=== PATIENT | male | born 1930 | race Caucasian/White ===

== ENCOUNTER 2017-07-02 12:57 | Emergency (ER) | payer MEDICARE ==
[~2017-07-02] VITALS: Ht 182.8 cm; Wt 83.9 kg
[~2017-07-02 12:57] MED LIST: AMLODIPINE5 MG PO; ASPIRIN81 M1 PO; ATOXIMETIN-B1 CAP PO; CALCITRIOL0.25 MCG PO; CATAPRES-TTS 10.1 MG PO; HALCION0.25 MG PO; HYDROCODONE BIT1 T11 PO; LEVOTHYROXINE0.05 MG PO; LIPITOR40 MG PO; LISINOPRIL AND1 TA2 PO; LISINOPRIL/HCTZ1 TA2 PO; LOPURIN100 MG PO; MEDROL DOSEPAK4 MG PO; NAPROSYN375 MG PO; SODIUM BICARBO325 MG PO; TAMSULOSIN HYD0.4 MG PO; TOPROL XL25 MG PO; TRAMADOL HCL50 MG PO; ULTRAM50 MG PO; VITAMIN D31000 IU PO; VOLTAREN50 M1 PO
== END 2017-07-02 14:37 | disposition home or self-care (01) ==
LOC: ED 12:57
DX: S16.1XXA Strain of muscle, fascia and tendon at neck level, initial encounter (principal); Z79.82 Long term (current) use of aspirin; Z79.899 Other long term (current) drug therapy; W01.0XXA Fall on same level from slipping, tripping and stumbling without subsequent striking against object, initial encounter; Y93.89 Activity, other specified; Y92.89 Other specified places as the place of occurrence of the external cause; Y99.8 Other external cause status

== ENCOUNTER 2017-07-23 05:16 | Inpatient (IN) | payer MEDICARE ==
[2017-07-23] VITALS (9 sets, daily range): BP systolic 154–238; BP diastolic 47–117
[~2017-07-23] VITALS: Ht 182.9 cm; Wt 85.9 kg
--- NOTE | ~2017-07-23 | CON ---
[place], [place] REPORT OF CONSULTATION [id number] UNIT #: [id number] ROOM: 409 DOCTOR: NATALIA CRAWFORD MD BIRTHDATE: [birth year] DOS: 07/23/2017 REASON FOR CONSULTATION: Acute on chronic kidney disease/patient known to you. HISTORY OF PRESENT ILLNESS: This is an 87-year-old male. He has a past medical history of known chronic kidney disease. He has a history of hypertension for over 10 years, history of prostate cancer with seed implantation years ago as well as DJD, hypothyroidism and hyperlipidemia. The patient has had somewhat of chronic issues with hyperkalemia, metabolic acidosis and is on sodium bicarbonate tablets. He also has apparently secondary hyperparathyroidism. The patient has a history of chronic kidney disease that has been ongoing for a number of years. He has been seen of number of dictaphone typist in the past, most recently saw my partner, Dr. Peterson, in the office, actually earlier this month. He appears to have stage 4 CKD with creatinine levels at baseline in the low 3s range. In his last visit, discussions were made in regards to access referral for his approaching dialysis and he was also referred to the CKD program. The patient has a history of anemia as well. It seems he was brought to the hospital following a fall down the steps. He denies any chest pain or shortness of breath. He was admitted for further evaluation. The patient's labs showed a BUN of 42 and a creatinine of 4.2. Blood pressure also was elevated. When I seen him, he stated he felt okay. He denied current shortness of breath. He just feels sore. IV fluids have been ordered by the primary service. He denied nausea or vomiting, presently fevers or chills. ALLERGIES: No known drug allergies. MEDICATIONS: Include amlodipine, aspirin, Lipitor, Rocaltrol, clonidine, levothyroxine, metoprolol, oxycodone, sodium bicarbonate, Flomax, trazodone. PAST MEDICAL HISTORY: As noted above. 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 FAMILY HISTORY: Negative for chronic kidney disease. Otherwise, noncontributory. SOCIAL HISTORY: No tobacco, alcohol or illicit drugs. There was remote history of tobacco abuse in the past. REVIEW OF SYSTEMS: As per HPI, otherwise a 10-point review of systems was reviewed and was negative. PHYSICAL EXAMINATION: VITAL SIGNS: Temperature was 97.5, pulse 65, respiratory rate 18, blood pressure 212/56. GENERAL: He is awake and alert, comfortable, in no acute distress. HEENT: Shows no JVD. Sclerae are anicteric. Mucous membranes are moist. Pharynx is clear. NECK: Supple. Trachea is midline. There is no neck lymphadenopathy. There is no thyromegaly. [place], [place] REPORT OF CONSULTATION NAME: GARY JIMENEZ UNIT #: [id number] ROOM: 409 DOCTOR: NATALIA CRAWFORD MD BIRTHDATE: [birth year] LUNGS: Diminished breath sounds, appreciable wheezes. No tactile fremitus. Not using accessory muscles of respiration. HEART: Normal S1, S2. No rub, thrill or gallop. ABDOMEN: Soft, nontender. There is no organomegaly or rigidity. There is no rebound or guarding. There is no CVA tenderness. EXTREMITIES: Had trace edema. There is no lower extremity lymphadenopathy. Distal pulses are 2+. SKIN: Showed no overt rash. There is no petechiae or purpura. Skin temperature warm. NEUROLOGIC: He was awake, alert. He was following commands. Cranial nerves intact. LABORATORY DATA: BUN 42, creatinine 4.2, sodium 140, potassium 5.0, CO2 of 23, calcium 8.7, magnesium 2.0, albumin 3.4. Hemoglobin 9.0, white count 10.9, platelets of 143. CT of the head showed no acute findings. IMPRESSION: 1. Acute on chronic kidney disease. The patient's baseline creatinine appears to be in the low 3s range. He may have a slight acute element likely related to prerenal factors. 2. Status post fall with details unclear. 3. Anemia of chronic disease. 4. Secondary hyperparathyroidism. 5. Chronic metabolic acidosis. 6. Hypothyroidism. 7. Hypertension with accelerating hypertension. PLAN: 1. Fluids have been ordered at 125 mL per hour. I discussed with the nurse and recommended to decrease to 50 mL per hour. If his creatinine is a little bit better tomorrow, I would recommend discontinuing fluids, especially if he is taking adequate oral intake. His blood pressure appears to be, uncontrolled. Would try to treat medications. Amlodipine can be increased to 10 mg daily. Clonidine can also be increased to be used on p.r.n. basis every 6-8 hours. Home meds should continue. Dose meds for current creatinine clearance. Would stop Lovenox in the setting of advanced kidney disease and use subcutaneous heparin. There is no need for renal replacement therapy presently. Thank you for this consultation. We will follow with you. [place], [place] REPORT OF CONSULTATION NAME: GARY JIMENEZ UNIT #: [id number] ROOM: [facility] DOCTOR: NATALIA CRAWFORD MD BIRTHDATE: [birth year] NATALIA CRAWFORD MD CM:CONSTR:REPORT OF CONSULTATION 1422 07/23/17 2235 interface
--- NOTE | ~2017-07-23 | PR ---
[place], [place] PROGRESS NOTE NAME: GARY JIMENEZ [facility] #: [id number] UNIT #: [id number] ROOM: 409 DOCTOR: NATALIA CRAWFORD MD BIRTHDATE: [birth year] DOS: 07/24/2017 SUBJECTIVE: The patient appears to be comfortable. No events were noted. He is awake and alert. When I did go in to see him, he was on the commode. He did not appear to be in any acute distress. PHYSICAL EXAMINATION: VITAL SIGNS: Showed temperature 97.8, pulse 63, respiratory rate 20, blood pressure 173/56. HEENT: Shows no JVD. EXTREMITIES: Had trace edema. SKIN: Showed no rash. NEUROLOGIC: No focal findings. Otherwise, the exam was limited. LABORATORY DATA: Hemoglobin 8.0, white count 7.4, platelets of 123. Urine culture showed no growth. BUN 40, creatinine 3.7, sodium 138, potassium of 5.2, CO2 of 22, calcium 8.2, phosphorus 3.4, magnesium 1.8. ASSESSMENT AND PLAN: 1. Acute on chronic kidney disease. The patient's baseline appears to be in the low 3s range. Renal function has improved with some volume. His creatinine is nearing baseline. 2. Status post fall with details unclear. Workup ongoing. 3. Anemia of chronic disease. The patient will require erythropoietin stimulating agents. Consideration should be made to give one dose while in the hospital. 4. Hypertension. Blood pressure has been labile. Recent changes have been made with increase in his amlodipine to 5 mg twice a day as well as p.r.n. clonidine. 5. Hypothyroidism. The patient is on levothyroxine. NATALIA CRAWFORD MD CM:PNTRANS [id number] NATALIA CRAWFORD MD [id number] interface
[~2017-07-23 05:16] MED LIST changes: -LEVOTHYROXINE0.05 MG PO; +LEVOTHYROXINE75 MCG PO
[2017-07-23 06:10] LABS: BILIRUBIN NEGATIVE (NEGATIVE); BLOOD 2+ (NEGATIVE); CLARITY CLEAR (CLEAR); COLOR YELLOW (YELLOW); GLUCOSE NEGATIVE (NEGATIVE); KETONE NEGATIVE (NEGATIVE); LEUKO ESTERASE NEGATIVE (NEGATIVE); NITRITE NEGATIVE (NEGATIVE); PH 6.5 (5.0-9.0); UROBILINOGEN 0.2 E.U./dl (0.2-1.0)
[2017-07-23 06:14] LABS: BASO # 0.1 10*3/uL (0.0-0.1); BASO % 0.5 % (0.0-1.0); EOS # 0.2 10*3/uL (0.0-0.4); EOS % 1.7 % (1.0-4.0); HEMATOCRIT 27.9 % (42.0-52.0); LYMPH # 1.7 10*3/uL (1.3-4.4); LYMPH % 15.3 % (27.0-41.0); MEAN CELL VOLUME 97.9 fl (80.0-94.0); MEAN CORPUSCULAR HGB 31.6 pg (27.0-31.0); MEAN CORPUSCULAR HGB CONC 32.3 g/dl (33.0-37.0); MEAN PLATELET VOLUME 11.4 fl (9.6-12.3); MONO # 0.9 10*3/uL (0.1-1.0); NEUT % 73.8 % (47.0-73.0); PLATELET COUNT AUTOMATED 143 10*3/uL (130-400); RED BLOOD COUNT 2.85 10*6/uL (4.50-5.90); RED CELL DISTRI WIDTH 13.5 % (0-14.5); WHITE BLOOD COUNT 10.9 10*3/uL (4.8-10.8)
[2017-07-23 06:25] LABS: ACT PARTIAL THROMBO TIME 25.9 SECONDS (20.8-31.5)
[2017-07-23 06:30] LABS: ALBUMIN 3.4 gm/dl (3.1-4.5); CREATININE 4.2 mg/dL (0.70-1.30); TOTAL PROTEIN 6.6 gm/dL (6.4-8.2)
--- NOTE | 2017-07-23 06:55 | NUR ---
PT AMBULATED FROM BED TO DOOR OF ROOM AND BACK WITH WALKER. NO DIFFICULTY AMBULATING BUT DIFFICULTY GETTING UP OUT OF BED.
--- NOTE | 2017-07-23 07:02 | NUR ---
DRESSING APPLIED TO SKIN TEARS ON RIGHT ARM AND SHOULDER. BLEEDING CONTROLLED AT THIS TIME.
--- NOTE | 2017-07-23 07:16 | NUR ---
REPORT FROM RICKY TAVERAS.
--- NOTE | 2017-07-23 07:41 | NUR ---
REPORT ATTEMPTED TO LEVEL 4, STATES THEY ARE STILL ASSIGNING PATIENT AND WILL CALL BACK SHORTLY.
--- NOTE | 2017-07-23 07:44 | NUR ---
REPORT CALLED FROM ER NURSE IZABEL, THIS RN ASKED ABOUT PT'S DOCUMENTED BP OF 217/74, SHE STATED PT HAS HISTORY OF HTN AND PT IS ALSO HAVING SOME PAIN. I STATED I WAS NOT COMFORTABLE RECEIVING PT AT THIS TIME. SHE STATED SHE WOULD NOTIFY THE DOCTOR. SHIFT DIRECTOR DEVIN UPDATED ON SITUATION.
--- NOTE | 2017-07-23 08:03 | NUR ---
REPORT CALLED TO FRANCO WALL RN UPSTAIRS AT 0750. NURSE REFUSING TO TAKE PATIENT WITH A DOCUMENTED BP OF 217/74. DR. SMITH MADE AWARE AND ORDERED 40MG IV HYDRALIZE. PATIENT WILL BE MONITORED IN ER AT THIS TIME.
--- NOTE | 2017-07-23 08:35 | NUR ---
BLOOD PRESSURE NOW 160/51 HR 74. FRANCO WALL RN MADE AWARE AND PATENT NOW BEINGTRASNFERRED TO INPATIENT CARE BY IZABEL VALLES RN.
--- NOTE | 2017-07-23 09:00 | NUR ---
A 87, admitted to , under the services of ONOFRE Uriarte DO with a diagnosis of INTRACTABLE PAIN, FREQUENT FALLS. Chief complaint is FELL DOWN BASEMENT STEPS. Patient arrived via ambulance from ER. Monitor applied. Initial assessment completed. Vital signs taken and recorded. ONOFRE URIARTE DO notified of admission to the unit. Orders received. See assessment for past medical history, medications and allergies. Patient and/or family oriented to unit. [facility] visitation policy reviewed. Clothing/patient valuable form completed. FRANCO WALL
--- NOTE | 2017-07-23 09:30 | NUR ---
DR CUTLER UPDATED ON PT'S STATUS, BP 206/66 AND OF PT'S MULTIPLE SKIN TEARS TO RIGHT ARM/SHOULDER.
[2017-07-23] MEDS ORDERED: TRAZODONE100 MG PO (09:37)
[2017-07-23] MEDS ORDERED: METOPROLOL SUCC50 M1 PO (09:37)
[2017-07-23] MEDS ORDERED: 'CLONIDINE0.1 MG PO (09:38)
--- NOTE | 2017-07-23 09:38 | NUR ---
PT'S MED REC UPDATED PER BOTTLES PROVIDED BY PT'S DAUGHTER, PT'S DAUGHTER WAS GOING TO HIS HOME TO CHECK FOR THE BOTTLE OF OXYCONTIN THAT THEY HAD FORGOTTEN AND WILL UPDATED WHEN THEY BRING IN.
[2017-07-23] MEDS ORDERED: OXAYDO7.5 MG PO (10:00)
--- NOTE | 2017-07-23 11:03 | NUR ---
SPOKE WITH MAUDE AT DR HUTCHINS OFFICE REGARDING CONSULT.
--- NOTE | 2017-07-23 12:19 | NUR ---
NOTIFIED DR CUTLER OF CRITICAL TROPONIN OF 0.047. NO NEW ORDERS.
--- NOTE | 2017-07-23 13:48 | NUR ---
SPOKE WITH DR CRAWFORD REGARDING PT'S AND ORDERS FOR IV FLUIDS, STATES TO DECREASE FLUIDS TO NS @ 50 ML/HR.
--- NOTE | 2017-07-23 14:24 | NUR ---
WOUND CARE COMPLETED AT THIS TIME PER ORDER. PT TOLERATED WELL.
--- NOTE | 2017-07-23 15:29 | NUR ---
DR CUTLER UPDATED ON PT'S BP OF , STATED TO CALL DR CRAWFORD FOR ORDERS.
--- NOTE | 2017-07-23 15:34 | NUR ---
CALL PLACED TO DR CRAWFORD'S ANSWERING SERVICE REGARDING BP OF 206/66. STATED THEY WILL PAGE THE DOCTOR.
--- NOTE | 2017-07-23 15:38 | NUR ---
SPOKE WITH DR CRAWFORD REGARDING PT'S BP OF 206/66, STATED TO INCREASE NORVASC TO 5MG BID, GIVE DOSE NOW AND TO PUT IN PRN ORDER FOR CLONIDINE 0.1MG EVERY 6 HOURS FOR SBP>180.
--- NOTE | 2017-07-23 16:21 | NUR ---
PT'S BP 206/66, GIVEN PRN CLONIDINE, WILL REASSESS FOR EFFECTIVENESS.
--- NOTE | 2017-07-23 17:00 | NUR ---
RECHECKED PT'S BP AT THIS TIME, BP: 184/82.
--- NOTE | 2017-07-23 21:30 | NUR ---
DR CARVAAJL CALLED TO REPORT BP OF 210/70 AND HR OF 51 WHICH HAD DROPPED TO 47. ORDERED AMLODIPINE TO BE HELD. ORDERED CLONIDINE AND OXYCODONE APPROVED TO GIVE.
--- NOTE | 2017-07-23 22:45 | NUR ---
BLOOD SUGAR RECHECKED AT 195/70. PRN CLONIDINE GIVEN.
[2017-07-24] VITALS: BP 192/46
[2017-07-24 04:00] VITALS: BP 180/75
[2017-07-24 06:07] LABS: BASO % 0.4 % (0.0-1.0); EOS # 0.2 10*3/uL (0.0-0.4); EOS % 2.7 % (1.0-4.0); HEMATOCRIT 25.2 % (42.0-52.0); LYMPH # 1.5 10*3/uL (1.3-4.4); LYMPH % 20.2 % (27.0-41.0); MEAN CELL VOLUME 98.1 fl (80.0-94.0); MEAN CORPUSCULAR HGB 31.1 pg (27.0-31.0); MEAN CORPUSCULAR HGB CONC 31.7 g/dl (33.0-37.0); MEAN PLATELET VOLUME 11.7 fl (9.6-12.3); MONO # 0.8 10*3/uL (0.1-1.0); MONO % 10.8 % (3.0-9.0); NEUT # 4.8 10*3/uL (2.3-7.9); NEUT % 65.5 % (47.0-73.0); PLATELET COUNT AUTOMATED 123 10*3/uL (130-400); RED BLOOD COUNT 2.57 10*6/uL (4.50-5.90); RED CELL DISTRI WIDTH 13.8 % (0-14.5); WHITE BLOOD COUNT 7.4 10*3/uL (4.8-10.8)
[2017-07-24 06:37] LABS: ALBUMIN 2.8 gm/dl (3.1-4.5); CREATININE 3.71 mg/dL (0.70-1.30); MAGNESIUM 1.9 mg/dL (1.5-2.1); POTASSIUM 5.2 mmol/L (3.5-5.1)
[2017-07-24 06:43] LABS: FREE T4 1.03 ng/dl (0.76-1.46); PHOSPHOROUS 3.4 mg/dL (2.5-4.9); THYROID STIM HORMONE (HS) 2.88 uIU/ml (0.358-4.75); TOTAL PROTEIN 5.7 gm/dL (6.4-8.2)
[2017-07-24 06:45] LABS: VITAMIN D, 25-HYDROXY 29.7 ng/mL (30-100)
[2017-07-24 06:47] LABS: ACT PARTIAL THROMBO TIME 29.4 SECONDS (20.8-31.5); INTERNATIONAL NORM RATIO 1.1 (2.0-3.5)
[2017-07-24 08:00] VITALS: BP 126/82; BP 202/74
--- NOTE | 2017-07-24 08:00 | NUR ---
PT. AWAKE, ALERT X 2, RE-ORIENTED TO PLACE PRN. LUNG SOUNDS DIMINISHED, HR IRREGULAR ON AUSCULTATION. PT. ATTEMPTED GETTING UP, BED ALARM WENT OFF, PT. UNSTEADY WHEN UP. ASSISTED BACK IN BED, BED ALARM BACK ON, CALL LIGHT WITHIN REACH, BED IN LOWEST POSITION, WHEELS LOCKED. SEE SHIFT ASSESSMENT.
--- NOTE | 2017-07-24 08:22 | NUR ---
SPOKE WITH DR CUTLER REGARDING FACT THAT PT HAS HAD POSITIVE TROPONINS & NO FURTHER WORKUP HAS BEEN DONE. ALSO NOTED THAT PT IS FULL CODE. PER DR CUTLER, NO NEED FOR FURTHER WORKUP BECAUSE THESE LAB RESULTS ARE ESSENTIALLY NOT A TRUE POSITIVE.
[2017-07-24 12:00] VITALS: BP 132/62
--- NOTE | 2017-07-24 13:56 | NUR ---
PT. UP TO CHAIR AT THIS TIME. BODY ALARM ON, NON-SKID FOOTWEAR ON, CALL LIGHT WITHIN REACH, CHAIR WHEELS LOCKED.
[2017-07-24 16:00] VITALS: BP 173/56
[2017-07-24 20:00] VITALS: BP 193/56
--- NOTE | 2017-07-24 21:58 | NUR ---
PRN RESTORIL GIVEN TO HELP PT REST. PT APPEARS VERY ANXIOUS AND IS TRYING TO CLIMB OUT OF BED UNASSISTED.
--- NOTE | 2017-07-24 22:58 | NUR ---
PRN RESTORIL EFFECTIVE, PT RESTING COMFORTABLY.
[2017-07-25] VITALS: BP 151/47
[2017-07-25 06:17] LABS: BASO % 0.6 % (0.0-1.0); EOS # 0.4 10*3/uL (0.0-0.4); EOS % 5.9 % (1.0-4.0); HEMATOCRIT 26.8 % (42.0-52.0); HEMOGLOBIN 8.7 g/dl (14.0-18.0); LYMPH # 1.8 10*3/uL (1.3-4.4); LYMPH % 27.4 % (27.0-41.0); MEAN CELL VOLUME 97.1 fl (80.0-94.0); MEAN CORPUSCULAR HGB 31.5 pg (27.0-31.0); MEAN CORPUSCULAR HGB CONC 32.5 g/dl (33.0-37.0); MEAN PLATELET VOLUME 11.5 fl (9.6-12.3); MONO # 0.6 10*3/uL (0.1-1.0); MONO % 9.2 % (3.0-9.0); NEUT # 3.6 10*3/uL (2.3-7.9); NEUT % 56.6 % (47.0-73.0); PLATELET COUNT AUTOMATED 131 10*3/uL (130-400); RED BLOOD COUNT 2.76 10*6/uL (4.50-5.90); RED CELL DISTRI WIDTH 13.8 % (0-14.5); WHITE BLOOD COUNT 6.4 10*3/uL (4.8-10.8)
[2017-07-25 06:34] LABS: CREATININE 3.88 mg/dL (0.70-1.30)
--- NOTE | 2017-07-25 06:58 | NUR ---
MANUAL BLOOD PRESSURE 150/60.
[2017-07-25 08:00] VITALS: BP 211/57
--- NOTE | 2017-07-25 10:39 | NUR ---
PHYSICAL THERAPY PAtient evaluated on 4, full evaluation to follow. Comntiue with PT as per plan of care with fall, max (A) x 2, alarms, decreased safety, confusion and severe right shoulder pain. Recommend ortho consult for severe right shoulder pain. Patient is high complexity via chart review, tests and evaluation: [id number]. Thank you for this referral. Nuris Springer,PT
[2017-07-25 11:00] VITALS: BP 181/62
--- NOTE | 2017-07-25 11:12 | NUR ---
Occupational Therapy evaluation completed this date on 4 with full eval to follow. Precautions include fall risk, RUE pain/contusions, negative fx to humerus, impaired ADLS, impaired cognition and [place]. Recommend OT per POC and SNF to enable safe return home at [facility]. Thank you for this referral. Heather Oleary OTR/L
[2017-07-25 12:00] VITALS: BP 161/60
--- NOTE | 2017-07-25 12:20 | NUR ---
DR. BULLOCK IS OUT OF TOWN UNTIL TOMORROW, CONTACTED DR DUNN AND MADE HIM AWARE.
--- NOTE | 2017-07-25 14:31 | NUR ---
UPON ASSESSMENT AT 1000, PT'S BP WAS 211/57, HEART RATE 71. ADMINISTERED CATAPRES AND NORVASC, RECHECKED BP AT 1100. BP READING WAS 181/62, HEART RATE OF 61 . ADMINISTERED METOPROLOL IN RESPONSE. REASSESSED. SEE ASSESSEMENT.
[2017-07-25 16:00] VITALS: BP 167/67
[2017-07-25 20:00] VITALS: BP 139/67; BP 159/59
[2017-07-26] VITALS: BP 161/88
[2017-07-26 06:44] LABS: CREATININE 3.97 mg/dL (0.70-1.30); POTASSIUM 5.2 mmol/L (3.5-5.1)
[2017-07-26 08:00] VITALS: BP 198/94
--- NOTE | 2017-07-26 08:25 | NUR ---
life care planner in to see patient to discuss short term rehab at a skilled facility. Patient hesitant, but agreed to [facility]. Contacted [facility] and faxed referral.
--- NOTE | 2017-07-26 08:30 | NUR ---
PHYSICAL THERAPY John seen this AM 1:1 for his therapy treatment. Pt is confused, having drcreased safety awareness and C/O right shoulder pain. John was trying to get out of bed when i came into the room and tried to talk him out of it. Followed by transfer sitting on the side of his bed MOD A X 1 and help using Pt's left UE. Sitting balance side of bed X 8 min with MIN A X 1. Followed by sit/stand and pivot into Pt's bedside chair with MAX A X 1, with much verbal cueing to stand, balance safety and to pivot and sit. Pt up in bedside chair body alarm on and his nurse in at this time, treatment time 16 min. TAM CARMONA CHORUS MASTER.
[2017-07-26 10:08] VITALS: BP 152/74
--- NOTE | 2017-07-26 10:43 | NUR ---
IN TO SEE PATIENT.
--- NOTE | 2017-07-26 10:47 | NUR ---
'S OFFICE CALLED AT THIS TIME REGARDING CONSULT.
--- NOTE | 2017-07-26 11:20 | NUR ---
DRESSINGS CHANGED AT THIS TIME PER ORDER. PT TOLERATED WELL.
--- NOTE | 2017-07-26 12:00 | NUR ---
This nurse went to evaluate patient's wound but dressing were just changed prior to me assessing the patient. I told the patient that I will evaulate the areas tomorrow.
--- NOTE | 2017-07-26 12:42 | NUR ---
completed PASS/RR online in [employer] system. Waiting on acceptance from [facility]
--- NOTE | 2017-07-26 12:50 | NUR ---
Patient has been accepted to [facility] and the Medicare requirement 3 night stay has also been completed. Patient can go when medicallly stable for discharge.
--- NOTE | 2017-07-26 14:46 | NUR ---
IN TO SEE PATIENT REGARDING CONSULT.
[2017-07-26 16:00] VITALS: BP 156/70
--- NOTE | 2017-07-26 18:42 | NUR ---
PT REQUESTED AND RECEIVED IV MORPHINE SLOWLY PER PRN ORDER FOR C/O RIGHT SHOULDER PAIN AND HEADACHE. WILL MONITOR EFFECTIVENESS. PT UNABLE TO RATE PAIN ON A SCALE. WILL CONTINUE TO MONITOR. CALL LIGHT WITHIN REACH.
--- NOTE | 2017-07-26 19:30 | NUR ---
ASSUMED CARE 0F PT AT THIS TIME, CALL LIGHT WITH IN REACH
[2017-07-26 20:00] VITALS: BP 173/54
[2017-07-27] VITALS: BP 173/113
--- NOTE | 2017-07-27 02:37 | NUR ---
RESTING IN BED WITH EYES CLOSED RESPS EASY AND NONLABORED WITH NO S/S OF DISTRESS CALL LIGHT WITH IN REACH
[2017-07-27 06:21] LABS: CREATININE 4.37 mg/dL (0.70-1.30); POTASSIUM 5.5 mmol/L (3.5-5.1)
--- NOTE | 2017-07-27 06:55 | NUR ---
PT HAD INCREASED BP CALL PLACED TO MD AND NEW ORDERED FOR HYDRALAZINE 10MG IV NOW
[2017-07-27 08:00] VITALS: BP 174/66; BP 196/104
--- NOTE | 2017-07-27 08:30 | NUR ---
PATIENT IS SITTING IN CHAIR IN SEVERE DISCOMFORT IN RIGHT SHOULDER AND NECK. PATIENT MEDICATED AND EFFECTIVENESS WILL BE EVALUATED. SEE OTHER NURSE NOTE ON MEDICATION ADMINISTRATION. CALL LIGHT IS WITHIN REACH, SEE SHIFT ASSESSMENT.
--- NOTE | 2017-07-27 08:30 | NUR ---
CONTACTED DR. OWEN IN REGARDS TO UNCONTROLLED HTN OF 196/104. WAS INSTRUCTED TO GIVE 1000 MEDICATIONS METOPROLOL AND NORVASC NOW TO HELP LOWER BLOOD PRESSURE. BLOOD PRESSURE WAS RECHECKED AND IMPROVED FROM INITIAL RESULTS.
--- NOTE | 2017-07-27 08:33 | NUR ---
PT C/O RIGHT SHOULDER NECK PAIN, RATES PAIN 10 ON PAIN SCALE 0-10. MEDICATED WITH MORPHINE IV PER PRN ORDER, SEE EMAR. PT SITTING UP IN RECLINER CHAIR WITH BODY ALARM ON. CALL LIGHT IN REACH. WILL CON'T TO MONITOR.
--- NOTE | 2017-07-27 09:02 | NUR ---
PHYSICAL THERAPY John seen this AM 1:1 for his therapy session and a little better then yesterday, Pt not trying to get out of bed this morning. Transfer supine/sit with MOD A X 1, with cueing. Sitting balance from MIN A X 1, to supervision X 1, with cueing for sitting balance X 17 min. Followed by sit/stand, standing balance from MAX A X 1, to MOD A X 1, verbal cueing to stand tall. John not understanding that it was time to sit and i needed help from stand to sitting up in his bedside chair, body alarm on. TAM CARMONA PHYSIOLOGICAL CHEMIST.
--- NOTE | 2017-07-27 09:57 | NUR ---
PATIENT SEATED IN RECLINER UPON ARRIVAL. PATIENT IDENTIFIED BY NAME AND DATE OF . PATIENT COMPLETED ACTIVITY TO TOLERANCE THIS DATE. COMPLETED GROOMING SEATED FOR FACILITATION AROM WASH FACE SBA, COMB JIMENEZ MAXA, AND DENTURE CARE SHELDON. PATIENT COMPLETED BUE AROM HAND FLEX/EXT X 10 REPS AND SHOULDER AAROM FLEXION/EXT 2 SETS X 10 REPS WITH LIMITATION RUE TO TOLERANCE.COMPLETED LUE ELBOW FLEX/EXT 2SETS X 10 REPS. PATIENT REQUIRED VERBAL CUES MAINTAIN ATTENTION TO TASK. PATIENT LETHARGIC AND C/O FATIGUE REQUIRING FREQ REST BREAKS. KANDI MARYANNE RANCHO/Yury
[2017-07-27 10:41] VITALS: BP 132/68
--- NOTE | 2017-07-27 10:42 | NUR ---
PT SITTING UP IN RECLINER CHAIR. BP 132/[address] PERSON IN TO SEE PT. ORDERED POST VOID WILL DO AFTER NEXT VOID. CALL LIGHT IN REACH.
--- NOTE | 2017-07-27 13:43 | NUR ---
SPOKE WITH FAMILY AND NOTIFIED MRI THAT PER THEM PT DOESN'T HAVE A MECHANICAL VALVE.
--- NOTE | 2017-07-27 14:41 | NUR ---
GARY JIMENEZ [id number] Please refer to the physician's history and physical for past medical history, comorbid conditions, and allergies. Diagnosis: INTRACTABLE PAIN,FREQUENT FALLS Pedro Score: 16,AT RISK WOUND DESCRIPTIONS: Location of the wound: right forearm Type of wound: skin tear Thickness: Partial Size: 3.9cm x 0.8cm x 0.1cm Tunneling: none Undermining: none Sinus Tract: none Presence of Exudate: serosanguineous Amount: Light Color: Red Odor: None Periwound Skin Appearance: Normal Wound edges: approximated Pain (associated with wound): none at time of assessment How does patient state this happened? pt stated he fell down the steps. Location of the wound: right side of upper arm Type of wound: skin tear Thickness: Partial Size: 0.5cm x 3.0cm x 0.1cm Tunneling: none Undermining: none Sinus Tract: none Presence of Exudate: serosanguineous Amount: Light Color: Red Odor: None Periwound Skin Appearance: Normal Wound edges: approximated Pain (associated with wound): none How does patient state this happened? pt stated he fell down the steps Location of the wound: bottom of right upper arm Type of wound: skin tear Thickness: Partial Size: 2.4cm x 3.4cm x 0.1cm Tunneling: none Undermining: none Sinus Tract: none Presence of Exudate: serosanguineous Amount: Light Color: Red Odor: None Periwound Skin Appearance: Normal Wound edges: approximated Pain (associated with wound): none at time of assessment How does patient state this happened? pt stated he fell down the steps Location of the wound: top of right upper arm Type of wound: skin tear Thickness: Partial Size: 3.0cm x 4.2cm x 0.1cm Tunneling: none Undermining: none Sinus Tract: none Presence of Exudate: Sanguineous Amount: Light Color: Red Odor: None Periwound Skin Appearance: Normal Wound edges: approximated Pain (associated with wound): none at time of assessment How does patient state this happened? pt stated he fell down the stairs Location of the wound: right shoulder Type of wound: skin tear Thickness: Partial Size: 0.2cm x 0.5cm x 0.1cm Tunneling: none Undermining: none Sinus Tract: none Presence of Exudate: serosanguineous Amount: Light Color: Red Odor: None Periwound Skin Appearance: Normal Wound edges: approximated Pain (associated with wound): none at time of assessment How does patient state this happened? pt stated he fell down the stairs Surface the patient is resting on: Isoflex SKIN PREVENTION RECOMMENDATION: 1. Pressure redistribution support surface as appropriate 2. Elevate heels 3. Remove boots/TEDS every shift and reapply 4. Head of bed 30 degrees as tolerated 5. Assess nutrition and hydration 6. Manage moisture 7. Avoid the use of containment devices while in bed 8. Use absorptive products on surfaces limit layers of linens on bed 9. Turn and reposition every 1-2 hours in bed and every 1 hour in chair as tolerated 10. Weight shifts every 15 minutes while up in chair 11. Offloading with pillows or device to keep heels elevated off bed 12. Monitor skin at least every shift 13. Inspect under medical devices twice a day WOUND TREATMENT RECOMMENDATIONS: Continue current orders.
[2017-07-27 16:00] VITALS: BP 128/68
--- NOTE | 2017-07-27 16:34 | NUR ---
PATIENT RETURNS TO THE FLOOR AFTER C-SPINE MRI. PATIENT RESTING IN BED. STUDENT IS WITH PATIENT. POST VOID RESIDUAL URINE IS 248ML AFTER BLADDER SCAN. FAMILY AT PATIENT BEDSIDE.
--- NOTE | 2017-07-27 18:59 | NUR ---
PATIENT RESTING COMFORTABLY IN BED, CALL LIGHT IN WITHIN REACH, BED ALARM IS ACTIVATED.
[2017-07-27 20:00] VITALS: BP 190/76
[2017-07-28] VITALS: BP 165/69
[2017-07-28 06:12] LABS: BASO % 0.4 % (0.0-1.0); EOS # 0.4 10*3/uL (0.0-0.4); EOS % 4.4 % (1.0-4.0); HEMATOCRIT 27.2 % (42.0-52.0); HEMOGLOBIN 8.8 g/dl (14.0-18.0); LYMPH # 3.7 10*3/uL (1.3-4.4); LYMPH % 44.2 % (27.0-41.0); MEAN CELL VOLUME 96.8 fl (80.0-94.0); MEAN CORPUSCULAR HGB 31.3 pg (27.0-31.0); MEAN CORPUSCULAR HGB CONC 32.4 g/dl (33.0-37.0); MEAN PLATELET VOLUME 11.4 fl (9.6-12.3); MONO # 0.9 10*3/uL (0.1-1.0); MONO % 10.8 % (3.0-9.0); NEUT # 3.3 10*3/uL (2.3-7.9); NEUT % 39.8 % (47.0-73.0); PLATELET COUNT AUTOMATED 172 10*3/uL (130-400); RED BLOOD COUNT 2.81 10*6/uL (4.50-5.90); RED CELL DISTRI WIDTH 13.8 % (0-14.5); WHITE BLOOD COUNT 8.4 10*3/uL (4.8-10.8)
[2017-07-28 06:44] LABS: CREATININE 4.51 mg/dL (0.70-1.30); POTASSIUM 5.1 mmol/L (3.5-5.1)
[2017-07-28 08:00] VITALS: BP 190/76
[2017-07-28 12:00] VITALS: BP 119/56
--- NOTE | 2017-07-28 13:59 | NUR ---
PHYSICAL THERAPY Patient presented to therapy with report of R Shoulder pain that is very painful. Patient could not verbalize a pain level. Patient performed transfer supine to sitting at EOB with 3 attempts. The first two attempts the patient experienced severe vertigo/ dizziness and had to lie back down. The 3rd supine to sitting transfer required Maximum Assistance x 1. Patient transfered sit to stand and transfer to bedside chair with Maximum Assistance x 1. Patient was 1:1 with this EDI DEVELOPER for 20 minutes of transfer training. Patient was unable to ambulate safely. Alireza Caban EDI DEVELOPER
[2017-07-28 16:00] VITALS: BP 164/60
[2017-07-28] MEDS ORDERED: B12100 MC1 PO (17:03)
[2017-07-28] MEDS ORDERED: OXAYDO7.5 MG PO (17:03)
[2017-07-28] MEDS ORDERED: AMLODIPINE BESYL5 MG PO (17:03)
[2017-07-28] MEDS ORDERED: Vitamin D PO (17:03)
[2017-07-28] MEDS ORDERED: 'CLONIDINE0.1 MG PO (17:03)
[2017-07-28] MEDS ORDERED: CYCLOBENZAPRINE10 MG PO (17:03)
[2017-07-28] MEDS ORDERED: TYLENOL325 M2 PO (17:03)
--- NOTE | 2017-07-28 19:24 | NUR ---
[facility] Discharge instructions reviewed with patient/family. Patient receptive and verbalizes understanding. Follow-up care arranged. Written instructions given to patient/family. NAVID BADILLO
--- NOTE | 2017-07-29 08:00 | NUR ---
PHYSICAL THERAPY CO-SIGN I approve of the Phyical Therapy notes written above. DUANE CAUSEY PT
== END 2017-07-28 19:20 | disposition other institution (70) | DRG 551 ==
LOC: ED 05:16 → EDHOLD 06:58 → 4E 06:58 → EDHOLD 07:19 → 4E 07:30
PROVIDERS: Family Medicine; Hospitalist; Internal Medicine; Student in an Organized Health Care Education/Training Program; ADMIT Internal Medicine
DX: M50.322 Other cervical disc degeneration at C5-C6 level (principal); N17.0 Acute kidney failure with tubular necrosis; N18.4 Chronic kidney disease, stage 4 (severe); E44.1 Mild protein-calorie malnutrition; I25.810 Atherosclerosis of coronary artery bypass graft(s) without angina pectoris; N25.81 Secondary hyperparathyroidism of renal origin; I16.1 Hypertensive emergency; S40.011A Contusion of right shoulder, initial encounter; I12.9 Hypertensive chronic kidney disease with stage 1 through stage 4 chronic kidney disease, or unspecified chronic kidney disease; M50.323 Other cervical disc degeneration at C6-C7 level; M75.41 Impingement syndrome of right shoulder; M48.02 Spinal stenosis, cervical region; E03.9 Hypothyroidism, unspecified; D72.829 Elevated white blood cell count, unspecified; D53.9 Nutritional anemia, unspecified; K59.00 Constipation, unspecified; R73.9 Hyperglycemia, unspecified; D63.8 Anemia in other chronic diseases classified elsewhere; R29.6 Repeated falls; N28.1 Cyst of kidney, acquired; W10.8XXA Fall (on) (from) other stairs and steps, initial encounter; Z87.891 Personal history of nicotine dependence; Z79.82 Long term (current) use of aspirin; Z85.46 Personal history of malignant neoplasm of prostate; Z79.899 Other long term (current) drug therapy; Y93.89 Activity, other specified; Y92.89 Other specified places as the place of occurrence of the external cause; Y99.8 Other external cause status; Z95.1 Presence of aortocoronary bypass graft; Z95.2 Presence of prosthetic heart valve; Z82.49 Family history of ischemic heart disease and other diseases of the circulatory system

== ENCOUNTER → 2017-09-09 | Outpatient (CLI) | payer MEDICARE ==
[~2017-09-09] MED LIST changes: +'CLONIDINE0.1 MG PO; +AMLODIPINE BESYL5 MG PO; +ATARAX,VISTARIL50 MG PO; +B12100 MC1 PO; +CYCLOBENZAPRINE10 MG PO; +LIDODERM1 EACH T; +METOPROLOL SUCC50 M1 PO; +MIRALAX17 GM PO; +OXAYDO7.5 MG PO; +PROSOURCE275 GM PO; +RIVASTIGMINE T1.5 M1 PO; -SODIUM BICARBO325 MG PO; +SODIUM BICARBO650 MG PO; +TRAZODONE100 MG PO; +TYLENOL325 M2 PO; +Vitamin D PO
== END | disposition home or self-care (01) ==
LOC: ORTHO 03:19
DX: M25.511 Pain in right shoulder (principal)

== ENCOUNTER 2017-09-13 10:08 | Inpatient (IN) | payer MEDICARE ==
[~2017-09-13] VITALS: Ht 182.9 cm; Wt 83.9 kg
[2017-09-13] VITALS (9 sets, daily range): BP systolic 168–242; BP diastolic 54–81
[~2017-09-13 10:08] MED LIST changes: -ATARAX,VISTARIL50 MG PO; -LIDODERM1 EACH T; -MIRALAX17 GM PO; -PROSOURCE275 GM PO; -RIVASTIGMINE T1.5 M1 PO
[2017-09-13 10:37] LABS: BASO % 0.1 % (0.0-1.0); EOS % 0.1 % (1.0-4.0); HEMOGLOBIN 8.7 g/dl (14.0-18.0); LYMPH # 2.5 10*3/uL (1.3-4.4); LYMPH % 18.7 % (27.0-41.0); MEAN CELL VOLUME 97.1 fl (80.0-94.0); MEAN CORPUSCULAR HGB 31.3 pg (27.0-31.0); MEAN CORPUSCULAR HGB CONC 32.2 g/dl (33.0-37.0); MEAN PLATELET VOLUME 11.2 fl (9.6-12.3); MONO # 1.2 10*3/uL (0.1-1.0); MONO % 8.9 % (3.0-9.0); NEUT # 9.5 10*3/uL (2.3-7.9); NEUT % 71.7 % (47.0-73.0); PLATELET COUNT AUTOMATED 175 10*3/uL (130-400); RED BLOOD COUNT 2.78 10*6/uL (4.50-5.90); RED CELL DISTRI WIDTH 14.3 % (0-14.5); WHITE BLOOD COUNT 13.2 10*3/uL (4.8-10.8)
--- NOTE | 2017-09-13 10:43 | NUR ---
I CALLED [facility] AND SPOKE WITH LADARIUS HIS NURSE SHE SAID PT HAD METOPROLOL 50 MG AT [address] M[address] MELENDEZ NOTIFIED
[2017-09-13 10:46] LABS: ACT PARTIAL THROMBO TIME 23.3 SECONDS (20.8-31.5)
--- NOTE | 2017-09-13 10:50 | NUR ---
PT TO CT SCAN
--- NOTE | 2017-09-13 11:09 | NUR ---
PT RETURNED FROM CT NO DISTRESS NOTED CALL LIGHT IN REACH
[2017-09-13 11:11] LABS: ALBUMIN 3.6 gm/dl (3.1-4.5); ALKALINE PHOSPHATASE 83 U/L (45-117); BUN 72 mg/dl (7-24); CHLORIDE 107 mmol/L (98-107); CREATININE 3.55 mg/dL (0.70-1.30); POTASSIUM 5.3 mmol/L (3.5-5.1); SGOT/AST 7 IU/L (3-35); SGPT/ALT 17 U/L (12-78); SODIUM 139 mmol/L (136-145); TOTAL PROTEIN 7.1 gm/dL (6.4-8.2)
[2017-09-13 11:12] LABS: TROPONIN I < 0.015 ng/ml (<0.045)
--- NOTE | 2017-09-13 11:34 | NUR ---
PT IN ROOM FAMILY AT BEDSIDE CALL LIGHT IN REACH NO DISTRESS N OTED
--- NOTE | 2017-09-13 12:08 | NUR ---
PT REFUSED TO TAKE PANTS OFF DENIES ANY WOUNDS TO BUTT [place] AREA
--- NOTE | 2017-09-13 12:20 | NUR ---
A 87, admitted to [facility], under the services of STEFANI Segura DO with a diagnosis of HYPERTENSIVE URGENCY. Chief complaint is DIZZINESS, ELEVATED BP. Patient arrived via wheel chair from ER. Monitor applied. Initial assessment completed. Vital signs taken and recorded. STEFANI SEGURA DO notified of admission to the unit. Orders received. See assessment for past medical history, medications and allergies. Patient and/or family oriented to unit. [facility] visitation policy reviewed. Clothing/patient valuable form completed. ELOY CHAIREZ
[2017-09-13] MEDS ORDERED: LIDODERM1 EACH T (13:03)
[2017-09-13] MEDS ORDERED: MIRALAX17 GM PO (13:05)
[2017-09-13] MEDS ORDERED: PROSOURCE275 GM PO (13:06)
[2017-09-13] MEDS ORDERED: RIVASTIGMINE T1.5 M1 PO (13:11)
[2017-09-13] MEDS ORDERED: ATARAX,VISTARIL50 MG PO (13:15)
--- NOTE | 2017-09-13 13:21 | NUR ---
Patient is LTC at [facility] and can return when medically stable for discharge.
--- NOTE | 2017-09-13 13:28 | NUR ---
PHYSICAL THERAPY Per nursing patient having hypertensive emergency with BP 218/80. PAtient is not appropriate for PT this date. Thank you for this referral. Nuris Springer,PT
--- NOTE | 2017-09-13 13:39 | NUR ---
[facility] NOTIFIED OF CONSULT.
--- NOTE | 2017-09-13 14:09 | NUR ---
'S ANSWERING SERVICE NOTIFIED OF CONSULT.
--- NOTE | 2017-09-13 15:26 | NUR ---
DR. PERSON CALLED IN AND UPDATED ON LABS AND BLOOD PRESSURE. NEW ORDERS RECEIVED.
--- NOTE | 2017-09-13 19:43 | NUR ---
PATIENT LYING IN BED, ANSWERS APPROPRIATELY. HAS NO COMPLAINTS AT THIS TIME. PATIENT IS ENCOURAGED TO USE CALL LIGHT WHEN HE NEEDS TO URINATE/BM. PATIENT LEFT IN VIEW OF STAFF, WILL CONTINUE TO MONITOR.
--- NOTE | 2017-09-13 23:43 | NUR ---
PATIENT GIVEN VISTARIL TO HELP WITH SLEEP, WILL MONITOR AND REASSESS.
--- NOTE | 2017-09-13 23:47 | NUR ---
PATIENTS BP 183/77, APRESOLINE GIVEN. WILL REASSESS.
[2017-09-14] VITALS (10 sets, daily range): BP systolic 160–204; BP diastolic 47–77
--- NOTE | 2017-09-14 00:50 | NUR ---
PATIENT RESTING, NO DISTRESS NOTED. VISTARIL EFFECTIVE
[2017-09-14 04:45] LABS: BASO % 0.1 % (0.0-1.0); EOS % 0.1 % (1.0-4.0); HEMATOCRIT 26.6 % (42.0-52.0); HEMOGLOBIN 8.7 g/dl (14.0-18.0); LYMPH # 2.8 10*3/uL (1.3-4.4); LYMPH % 25.7 % (27.0-41.0); MEAN CORPUSCULAR HGB 31.1 pg (27.0-31.0); MEAN CORPUSCULAR HGB CONC 32.7 g/dl (33.0-37.0); MEAN PLATELET VOLUME 11.7 fl (9.6-12.3); MONO % 9.3 % (3.0-9.0); NEUT # 7.1 10*3/uL (2.3-7.9); NEUT % 64.2 % (47.0-73.0); PLATELET COUNT AUTOMATED 171 10*3/uL (130-400); RED CELL DISTRI WIDTH 14.4 % (0-14.5)
[2017-09-14 05:30] LABS: ALBUMIN 3.1 gm/dl (3.1-4.5); CREATININE 3.52 mg/dL (0.70-1.30); FREE T4 1.18 ng/dl (0.76-1.46); PHOSPHOROUS 3.2 mg/dL (2.5-4.9); POTASSIUM 5.8 mmol/L (3.5-5.1); TOTAL PROTEIN 6.2 gm/dL (6.4-8.2)
[2017-09-14 05:35] LABS: THYROID STIM HORMONE (HS) 1.84 uIU/ml (0.358-4.75)
--- NOTE | 2017-09-14 12:12 | NUR ---
HERE TO SEE PATIENT. ORTHOSTATIC BP DONE AND RECORDED IN CHART.
--- NOTE | 2017-09-14 12:21 | NUR ---
PHYSICAL THERAPY PAtient eating lunch and has visitors at this time. Nursing reports he is to be transfrreed to [facility] and is having orthostatic hypotension difficulties currently. Nuris Springer,PT
--- NOTE | 2017-09-14 12:40 | NUR ---
TRANSFERRED TO ROOM 419 VIA CHAIR. REPORT GIVEN TO RN. FAMILY HERE WITH PATIENT.
--- NOTE | 2017-09-14 13:13 | NUR ---
PATIENT CAME OUT OF UNIT ASSUMING CARE OF PATIENT AT THOS TIME
--- NOTE | 2017-09-14 13:48 | NUR ---
PHYSICAL THERAPY PAtient respectfully declines PT services this date. PAtient is termite technician care. PAtient reports he is ambulating to restroom with nursing assist. Thank you for this referral. Nuris Springer,PT
--- NOTE | 2017-09-14 15:50 | NUR ---
PT RESTING IN BED. RESP-EASY AND REGULAR. NO SOB NOTED. BP 204/74 MANUALLY. MEDICATED WITH HYDRALAZINE IV PER PRN ORDER, SEE EMAR. NO C/O AT THIS TIME. CALL LIGHT IN REACH. SEE SHIFT ASSESSMENT.
--- NOTE | 2017-09-14 20:00 | NUR ---
PT ASSESSED AT THIS TIME AND HS MEDICATION GIVEN PER ORDER. NO S/S OF DISTRESS. NO COMPLAINTS VOICED. RESPIRATIONS EASY AND UNLABORED. HEART RATE REGULAR. BOWEL SOUNDS NORMOACTIVE. ALL NEEDS CURRENTLY MET.
[2017-09-15] VITALS (7 sets, daily range): BP systolic 160–200; BP diastolic 43–82
--- NOTE | 2017-09-15 02:00 | NUR ---
IN TO SEE PT AT THIS TIME, CURRENTLY RESTING PEACEFULLY. NO S/S OF DISTRESS. RESPIRATIONS EASY AND UNLABORED. ALL SAFETY MEASURES IN PLACE.
[2017-09-15 05:36] LABS: CREATININE 3.54 mg/dL (0.70-1.30); PHOSPHOROUS 3.9 mg/dL (2.5-4.9); POTASSIUM 5.4 mmol/L (3.5-5.1)
[2017-09-15 05:56] LABS: BASO % 0.2 % (0.0-1.0); EOS # 0.1 10*3/uL (0.0-0.4); EOS % 1.1 % (1.0-4.0); HEMATOCRIT 25.4 % (42.0-52.0); HEMOGLOBIN 8.3 g/dl (14.0-18.0); LYMPH # 2.3 10*3/uL (1.3-4.4); LYMPH % 27.1 % (27.0-41.0); MEAN CELL VOLUME 95.5 fl (80.0-94.0); MEAN CORPUSCULAR HGB 31.2 pg (27.0-31.0); MEAN CORPUSCULAR HGB CONC 32.7 g/dl (33.0-37.0); MEAN PLATELET VOLUME 12.3 fl (9.6-12.3); MONO # 0.8 10*3/uL (0.1-1.0); MONO % 9.3 % (3.0-9.0); NEUT # 5.3 10*3/uL (2.3-7.9); NEUT % 61.8 % (47.0-73.0); PLATELET COUNT AUTOMATED 166 10*3/uL (130-400); RED BLOOD COUNT 2.66 10*6/uL (4.50-5.90); RED CELL DISTRI WIDTH 14.6 % (0-14.5); WHITE BLOOD COUNT 8.5 10*3/uL (4.8-10.8)
--- NOTE | 2017-09-15 05:59 | NUR ---
PT AM MEDICATION GIVEN PER PHYSICIAN ORDER AND TAKEN WITH EASE. NO S/S OF DISTRESS. RESPIRATIONS EASY AND UNLABORED. ALL NEEDS MET. ALL SAFETY MEASURES IN PLACE.
--- NOTE | 2017-09-15 08:15 | NUR ---
NURSE NOTIFIED OF ELEVATED BP, RECHECKED MANUALLY X2 MILAGROS BAUTISTA [facility]
--- NOTE | 2017-09-15 08:16 | NUR ---
NURSE NOTIFIED OF ELEVATED BLOOD PRESSURE, RECHECKED AMNUALLY X2 MILAGROS PARRISH
--- NOTE | 2017-09-15 08:37 | NUR ---
MEDICATED 10MG IV APRESOLINE FOR MANUAL BP OF 200/72 ORDERED. WILL CONTINUE TO MONITOR.
--- NOTE | 2017-09-15 09:00 | NUR ---
case management visits with patient, patient will return to [facility] when medically stable for discharge
[2017-09-15 09:06] LABS: VITAMIN D, 25-HYDROXY 33.4 ng/mL (30-100)
--- NOTE | 2017-09-15 10:00 | NUR ---
PT RESTING CONFORTABLY REPORTS NO PAIN. MILAGROS BAUTISTA SPNRCC
--- NOTE | 2017-09-15 11:00 | NUR ---
PT WALKED WITH PT, TOLERATED WELL. AFTER WALKING STATES HE FEELS LIKE HEART IS RACING. HR IS 89 PER ELEMENTARY EDUCATION TUTOR, AND 92 APICAL. BP IS NOW 168/60.
--- NOTE | 2017-09-15 11:09 | NUR ---
PHYSICAL THERAPY PAtient evalauted on 4, full evaluation to follow. Continue with PT as per plan of care with fall, recent hypertensive emergency and cardiac precautions as well as bed alarm precautions. Return to LTC at [facility] with PT as needed to return to [facility] PAtient is moderate complexity via chart review, tests and evaluation: 93547. Thank you for this referral. Nuris lin.PT
--- NOTE | 2017-09-15 12:06 | NUR ---
PT UP TO BEDSIDE FOR BM. STEADY ON FEET AND REPORTED NO DIZZINESS. MILAGROS BAUTISTA SPNRCC
--- NOTE | 2017-09-15 13:10 | NUR ---
PT UP AND WALKED TO WAITING AREA WITH HIS FAMILY AND A STUDENT, SAT DOWN TO SOCIALIZE THEN WALKED BACK TO ROOM. PT STATED THAT HE FELT GOOD, BESIDES A LITTLE LIGHTHEADEDNESS. MILAGROS FUNESCC
--- NOTE | 2017-09-15 13:48 | NUR ---
PT UP TO BEDSIDE FOR SECOND BM OF DAY. PT STATES THEY ARE FEELING ALOT BETTER. MILAGROS BAUTISTA SPNRCC
--- NOTE | 2017-09-15 16:42 | NUR ---
RESTING QUIETLY IN BED, NO C/O NO DISTRESS NOTED. WILL CONTINUE TO MONITOR.
--- NOTE | 2017-09-15 20:30 | NUR ---
ASSESSMENT COMPLETE AT THIS TIME, PT ALERT AND ORIENTED WITH SOME CONFUSION. LUNGS DIMINISHED BILATERALLY. HEART RATE IN 70S ON THE CM. NORMOACTIVE BSX4. NO COMPLAINTS AT THIS TIME. RESPIRATIONS EASY AND UNLABORED. CALL LIGHT IN REACH.
--- NOTE | 2017-09-15 22:00 | NUR ---
HS MEDICATION TAKEN WITH EASE. NO S/S OF PAIN OR DISTRESS. RESPIRATIONS EASY AND UNLABORED. ALL NEEDS MET AT THIS TIME. PT RESTING PEACEFULLY IN BED, CALL LIGHT IN REACH.
[2017-09-16] VITALS: BP 168/81
--- NOTE | 2017-09-16 04:20 | NUR ---
24 HR chart check completed.
--- NOTE | 2017-09-16 06:00 | NUR ---
PT RESTING PEACEFULLY. NO S/S OF PAIN OR DISTRESS. RESPIRATIONS EASY AND UNLABORED. ALL NEEDS MET, CALL LIGHT IN REACH.
[2017-09-16 06:08] LABS: BASO % 0.1 % (0.0-1.0); EOS # 0.1 10*3/uL (0.0-0.4); EOS % 1.2 % (1.0-4.0); HEMATOCRIT 25.3 % (42.0-52.0); HEMOGLOBIN 8.3 g/dl (14.0-18.0); LYMPH # 2.5 10*3/uL (1.3-4.4); LYMPH % 28.7 % (27.0-41.0); MEAN CELL VOLUME 95.1 fl (80.0-94.0); MEAN CORPUSCULAR HGB 31.2 pg (27.0-31.0); MEAN CORPUSCULAR HGB CONC 32.8 g/dl (33.0-37.0); MEAN PLATELET VOLUME 11.8 fl (9.6-12.3); MONO # 0.8 10*3/uL (0.1-1.0); MONO % 9.8 % (3.0-9.0); NEUT # 5.1 10*3/uL (2.3-7.9); NEUT % 59.7 % (47.0-73.0); PLATELET COUNT AUTOMATED 160 10*3/uL (130-400); RED BLOOD COUNT 2.66 10*6/uL (4.50-5.90); RED CELL DISTRI WIDTH 14.8 % (0-14.5); WHITE BLOOD COUNT 8.5 10*3/uL (4.8-10.8)
[2017-09-16 06:32] LABS: ALBUMIN 2.9 gm/dl (3.1-4.5); CREATININE 3.76 mg/dL (0.70-1.30); POTASSIUM 4.7 mmol/L (3.5-5.1); TOTAL PROTEIN 5.9 gm/dL (6.4-8.2)
[2017-09-16 08:00] VITALS: BP 170/52
--- NOTE | 2017-09-16 08:55 | NUR ---
PHYSICAL THERAPY Patient presented to therapy with report of feeling good and wanting to walk. Patient also wants to walk without a walker today. Patient performed supine to sitting at EOB transfer with Supervision. Patient performed sit to stand with Supervision. Patient performed gait with W/W for 500' x 1 with CGA X 1. Patient then performed gait with NO ASSISTIVE DEVICE and APPARATUS ENGINEERING TECHNOLOGIST X 1 for 200' x 1. Patient was left in seated position with LEs raised and call light within reach. Patient tolerated treatment well and had no episodes of vertigo or lite headedness during gait. Patient was 1:1 with this FILLING STATION EQUIPMENT MECHANIC for 25 minutes. CATHERINE OMALLEY FILLING STATION EQUIPMENT MECHANIC
--- NOTE | 2017-09-16 11:09 | NUR ---
Faxed updates to [facility] for probable D/C over the weekend. Patient is ok to return when medically stable for discharge.
[2017-09-16 12:00] VITALS: BP 170/60
[2017-09-16 16:00] VITALS: BP 146/64
--- NOTE | 2017-09-16 19:54 | NUR ---
NOTIFIED DR MILLER OF PATIENTS BP 142/32 AT THIS TIME. HE STATED HE WILL TAKE A LOOK AT HIS MEDICATIONS.
--- NOTE | 2017-09-16 20:00 | NUR ---
DR SOLORIO IN TO SEE PATIENT AT THIS TIME.
--- NOTE | 2017-09-16 20:40 | NUR ---
PATIENT RESTING QUIETLY IN BED. HE IS PLEASANT AND COOPERATIVE WITH CARE. NO VOICED COMPLAINTS AT THIS TIME. RESPIRATIONS EASY/REG. NO SXS OF DISTRESS. FLUIDS MAINTAINED PER ORDER. CALL LIGHT IN REACH. SEE ASSESSMENT.
[2017-09-17] VITALS: BP 160/50
--- NOTE | 2017-09-17 02:50 | NUR ---
PATIENT SLEEPING. FLUIDS MAINTAINED PER ORDER. CALL LIGHT IN REACH.
--- NOTE | 2017-09-17 04:20 | NUR ---
MEDICATED WITH PRN TYLENOL ORDERED FOR C/O KNEE AND BACK PAIN RATED A 6.
--- NOTE | 2017-09-17 05:30 | NUR ---
PATIENT STATES EARLIER TYLENOL WAS EFFECTIVE.
--- NOTE | 2017-09-17 05:57 | NUR ---
PATIENTS BP 170/42. NOTIFIED DR MILLER AND HE SAID TO HOLD THE 0600 DOSE OF HYDRALAZINE.
[2017-09-17 06:00] VITALS: BP 170/42
[2017-09-17 07:13] LABS: BASO % 0.1 % (0.0-1.0); EOS # 0.1 10*3/uL (0.0-0.4); EOS % 1.3 % (1.0-4.0); HEMATOCRIT 23.8 % (42.0-52.0); HEMOGLOBIN 7.8 g/dl (14.0-18.0); LYMPH # 2.5 10*3/uL (1.3-4.4); LYMPH % 23.8 % (27.0-41.0); MEAN CELL VOLUME 96.4 fl (80.0-94.0); MEAN CORPUSCULAR HGB 31.6 pg (27.0-31.0); MEAN CORPUSCULAR HGB CONC 32.8 g/dl (33.0-37.0); MEAN PLATELET VOLUME 12.4 fl (9.6-12.3); MONO % 9.2 % (3.0-9.0); NEUT # 6.7 10*3/uL (2.3-7.9); NEUT % 65.2 % (47.0-73.0); PLATELET COUNT AUTOMATED 148 10*3/uL (130-400); RED BLOOD COUNT 2.47 10*6/uL (4.50-5.90); RED CELL DISTRI WIDTH 14.6 % (0-14.5); WHITE BLOOD COUNT 10.3 10*3/uL (4.8-10.8)
[2017-09-17 07:44] LABS: ALBUMIN 2.8 gm/dl (3.1-4.5); CREATININE 3.56 mg/dL (0.70-1.30); POTASSIUM 4.5 mmol/L (3.5-5.1)
[2017-09-17 08:00] VITALS: BP 168/80; BP 197/58
[2017-09-17 12:00] VITALS: BP 185/51
[2017-09-17 13:22] VITALS: BP 152/58
[2017-09-17] MEDS ORDERED: AMLODIPINE BESYL5 MG PO (14:05)
[2017-09-17] MEDS ORDERED: HYDRALAZINE HYD50 MG PO (14:05)
--- NOTE | 2017-09-17 14:40 | NUR ---
DISCHARGE INSTRUCTIONS REVIEWED. HEPLOCK AND SHARK BIOLOGIST DISCONTINUED. PT WHEELED OFF THE FLOOR VIA WHEELCHAIR BY THE PA AND IS TO BE TRANSPORTED BACK TO [facility] BY HIS FAMILY. REPORT CALLED TO [facility].
--- NOTE | 2017-09-19 07:49 | NUR ---
PHYSICAL THERAPY CO-SIGN I approve of the Phyical Therapy notes written above. DUANE CAUSEY PT
== END 2017-09-17 14:40 | disposition other institution (70) | DRG 641 ==
LOC: ED 10:08 → EDHOLD 11:55 → 4E 11:55 → ICCU 12:05 → 4E 09-14 12:50
PROVIDERS: Family Medicine; Internal Medicine Nephrology; Registered Nurse; Student in an Organized Health Care Education/Training Program; ADMIT Internal Medicine
DX: E87.5 Hyperkalemia (principal); D53.8 Other specified nutritional anemias; N18.4 Chronic kidney disease, stage 4 (severe); F03.90 Unspecified dementia, unspecified severity, without behavioral disturbance, psychotic disturbance, mood disturbance, and anxiety; E44.1 Mild protein-calorie malnutrition; I16.0 Hypertensive urgency; I12.9 Hypertensive chronic kidney disease with stage 1 through stage 4 chronic kidney disease, or unspecified chronic kidney disease; R00.1 Bradycardia, unspecified; I25.10 Atherosclerotic heart disease of native coronary artery without angina pectoris; E21.1 Secondary hyperparathyroidism, not elsewhere classified; R29.6 Repeated falls; I95.1 Orthostatic hypotension; E78.5 Hyperlipidemia, unspecified; E03.9 Hypothyroidism, unspecified; D72.829 Elevated white blood cell count, unspecified; R80.9 Proteinuria, unspecified; E55.9 Vitamin D deficiency, unspecified; Z95.2 Presence of prosthetic heart valve; Z79.899 Other long term (current) drug therapy; Z79.82 Long term (current) use of aspirin; Z85.46 Personal history of malignant neoplasm of prostate; Z95.1 Presence of aortocoronary bypass graft; Z87.891 Personal history of nicotine dependence; Z82.49 Family history of ischemic heart disease and other diseases of the circulatory system; Z68.26 Body mass index [BMI] 26.0-26.9, adult

== ENCOUNTER 2017-10-03 20:58 | Inpatient (IN) | payer MEDICARE, MEDICAID ==
[~2017-10-03] VITALS: Ht 182.9 cm; Wt 84.9 kg
[~2017-10-03 20:58] MED LIST changes: +ATARAX,VISTARIL50 MG PO; +HYDRALAZINE HYD50 MG PO; +LEVAQUIN250 M1 PO; +LIDODERM1 EACH T; +MIRALAX17 GM PO; +PROSOURCE275 GM PO; +RIVASTIGMINE T1.5 M1 PO
[2017-10-03 21:06] VITALS: BP 142/58
[2017-10-03] MEDS ORDERED: VITAMIN D31000 UNI1 PO (21:07)
[2017-10-03 23:06] LABS: BASO % 0.1 % (0.0-1.0); EOS # 0.4 10*3/uL (0.0-0.4); EOS % 4.3 % (1.0-4.0); HEMATOCRIT 18.1 % (42.0-52.0); LYMPH # 1.5 10*3/uL (1.3-4.4); LYMPH % 17.9 % (27.0-41.0); MEAN CELL VOLUME 94.8 fl (80.0-94.0); MEAN CORPUSCULAR HGB 31.4 pg (27.0-31.0); MEAN CORPUSCULAR HGB CONC 33.1 g/dl (33.0-37.0); MEAN PLATELET VOLUME 12.3 fl (9.6-12.3); MONO # 0.6 10*3/uL (0.1-1.0); MONO % 6.9 % (3.0-9.0); NEUT # 5.6 10*3/uL (2.3-7.9); NEUT % 69.1 % (47.0-73.0); RED BLOOD COUNT 1.91 10*6/uL (4.50-5.90); RED CELL DISTRI WIDTH 18.9 % (0-14.5); WHITE BLOOD COUNT 8.1 10*3/uL (4.8-10.8)
[2017-10-03 23:14] LABS: PLATELET COUNT AUTOMATED 438 10*3/uL (130-400)
[2017-10-03 23:15] LABS: INTERNATIONAL NORM RATIO 1.5 (2.0-3.5)
[2017-10-03 23:46] VITALS: BP 136/54
[2017-10-03 23:58] LABS: CREATININE 4.45 mg/dL (0.70-1.30); POTASSIUM 5.2 mmol/L (3.5-5.1)
[2017-10-04] VITALS (17 sets, daily range): BP systolic 131–157; BP diastolic 46–62
--- NOTE | 2017-10-04 | NUR ---
A 87, admitted to , under the services of HEMA Livingston DO with a diagnosis of ANEMIA, DEMENTIA. Chief complaint is ANEMIA. Patient arrived via ambulance from ER. Monitor applied. Initial assessment completed. Vital signs taken and recorded. HEMA LIVINGSTON DO notified of admission to the unit. Orders received. See assessment for past medical history, medications and allergies. Patient and/or family oriented to unit. [facility] visitation policy reviewed. Clothing/patient valuable form completed. ALEKSANDR BLANDON
--- NOTE | 2017-10-04 00:21 | NUR ---
SPOKE WITH NURSE FROM [facility]. STATES SHE WILL FAX PATIENT'S MEDICATION LIST BUT NEEDS SOMEBODY TO CALL HER BACK WITH ADMITTING DIAGNOSES.
[2017-10-04] MEDS ORDERED: PAIN RELIEVER650 MG PO (01:43)
[2017-10-04] MEDS ORDERED: METOPROLOL TART50 M1 PO (01:47)
[2017-10-04] MEDS ORDERED: PERCOCET 7.5-31 EACH PO (01:54)
--- NOTE | 2017-10-04 06:28 | NUR ---
DR. WAYNE'S OFFICE NOTIFIED OF NEW CONSULT.
--- NOTE | 2017-10-04 06:40 | NUR ---
DR. WAYNE RETURNED CALL FOR CONSULT. LABS AND ORDERS REVIEWED WITH
[2017-10-04 07:02] LABS: ALBUMIN 2.2 gm/dl (3.1-4.5); CREATININE 4.27 mg/dL (0.70-1.30); PHOSPHOROUS 5.3 mg/dL (2.5-4.9)
[2017-10-04 07:09] LABS: FREE T4 1.17 ng/dl (0.76-1.46); THYROID STIM HORMONE (HS) 6.69 uIU/ml (0.358-4.75); TOTAL PROTEIN 6.5 gm/dL (6.4-8.2)
[2017-10-04 07:13] LABS: BASO % 0.2 % (0.0-1.0); EOS # 0.4 10*3/uL (0.0-0.4); EOS % 4.8 % (1.0-4.0); HEMATOCRIT 21.6 % (42.0-52.0); HEMOGLOBIN 7.4 g/dl (14.0-18.0); LYMPH # 1.7 10*3/uL (1.3-4.4); LYMPH % 20.7 % (27.0-41.0); MEAN CELL VOLUME 92.7 fl (80.0-94.0); MEAN CORPUSCULAR HGB 31.8 pg (27.0-31.0); MEAN CORPUSCULAR HGB CONC 34.3 g/dl (33.0-37.0); MONO # 0.6 10*3/uL (0.1-1.0); MONO % 7.2 % (3.0-9.0); NEUT # 5.4 10*3/uL (2.3-7.9); NEUT % 65.5 % (47.0-73.0); RED BLOOD COUNT 2.33 10*6/uL (4.50-5.90); RED CELL DISTRI WIDTH 15.9 % (0-14.5); WHITE BLOOD COUNT 8.3 10*3/uL (4.8-10.8)
[2017-10-04 07:14] LABS: ACT PARTIAL THROMBO TIME 30.7 SECONDS (20.8-31.5); INTERNATIONAL NORM RATIO 1.1 (2.0-3.5)
[2017-10-04 07:16] LABS: PLATELET COUNT AUTOMATED 300 10*3/uL (130-400)
[2017-10-04 07:21] LABS: VITAMIN D, 25-HYDROXY 26.2 ng/mL (30-100)
--- NOTE | 2017-10-04 08:26 | NUR ---
PHYSICAL THERAPY Nursing screen received. Orders received as well. Thank you. Nuris Springer,PT
--- NOTE | 2017-10-04 08:27 | NUR ---
PATIENT SLEEPING COMFORTABLY IN BED, CALL LIGHT WITHIN REACH. [facility]
--- NOTE | 2017-10-04 08:30 | NUR ---
AIR LAUNCH WEAPONS TECHNICIAN VS. SLEEPING. PT IS LTC AT [facility].
--- NOTE | 2017-10-04 09:12 | NUR ---
Patient is LTC at [facility] and can return when medically stable for discharge.
--- NOTE | 2017-10-04 10:15 | NUR ---
DOCTOR IN TO SEE PT, SECOND UNIT OF PRBC'S TO BE HUNG AT PRESENT BERNARDO BAKER SPJOHNCC
--- NOTE | 2017-10-04 12:06 | NUR ---
PT TOLERATING TRANSFUSION WELL BERNARDO BAKER SPNRCC
--- NOTE | 2017-10-04 12:46 | NUR ---
PHYSICAL THERAPY PAtient having blood TX at this time. Thank you for this referral. Nuris Springer,PT
--- NOTE | 2017-10-04 13:48 | NUR ---
DR. WAYNE IN TO SEE PT, IV FLUIDS D/C'D PER ORDER BERNARDO BAKER SPCC
--- NOTE | 2017-10-04 13:53 | NUR ---
SSECOND UNIT OF PRBC'S INFUSED BY 1315 WITHOUT INCIDENT, MEDICATED FOR C/O CONSTIPATION BERNARDO PARRISH
--- NOTE | 2017-10-04 14:33 | NUR ---
PHYSICAL THERAPY PAtient with multiple student nurses at this time. Nuris Springer,PT
--- NOTE | 2017-10-04 20:16 | NUR ---
PATIENT RESTING IN BED WITH EYES CLOSED. EASILY ARROUSABLE. NO NEEDS MADE. BED IN LOWEST POSITION, CALL LIGHT IN REACH
--- NOTE | 2017-10-04 23:44 | NUR ---
24 HR chart check completed.
[2017-10-05] VITALS: BP 145/46
--- NOTE | 2017-10-05 03:14 | NUR ---
PATIENT RESTING IN BED WITH NO S/S OF DISTRESS. RESPS EASY AND REGULAR. BED ALARM ON, BED IN LOWEST POSITION, CALL LIGHT IN REACH
[2017-10-05 06:15] LABS: BASO % 0.3 % (0.0-1.0); EOS # 0.5 10*3/uL (0.0-0.4); EOS % 6.8 % (1.0-4.0); HEMATOCRIT 26.5 % (42.0-52.0); HEMOGLOBIN 8.9 g/dl (14.0-18.0); LYMPH # 1.5 10*3/uL (1.3-4.4); LYMPH % 20.9 % (27.0-41.0); MEAN CELL VOLUME 89.8 fl (80.0-94.0); MEAN CORPUSCULAR HGB 30.2 pg (27.0-31.0); MEAN CORPUSCULAR HGB CONC 33.6 g/dl (33.0-37.0); MEAN PLATELET VOLUME 9.9 fl (9.6-12.3); MONO # 0.6 10*3/uL (0.1-1.0); MONO % 8.8 % (3.0-9.0); NEUT # 4.3 10*3/uL (2.3-7.9); NEUT % 61.2 % (47.0-73.0); PLATELET COUNT AUTOMATED 316 10*3/uL (130-400); RED BLOOD COUNT 2.95 10*6/uL (4.50-5.90); RED CELL DISTRI WIDTH 17.1 % (0-14.5)
[2017-10-05 06:24] LABS: ALBUMIN 2.3 gm/dl (3.1-4.5); CREATININE 3.76 mg/dL (0.70-1.30); PHOSPHOROUS 4.2 mg/dL (2.5-4.9); POTASSIUM 5.1 mmol/L (3.5-5.1)
[2017-10-05 08:00] VITALS: BP 140/62
--- NOTE | 2017-10-05 08:10 | NUR ---
PT RESTING IN BED. RESP-EASY AND REGULAR. NO C/O AT THIS TIME. TOLERATED ROUTINE MED WITH NO PROBLEM .CALL LIGHT IN REACH. SEE SHIFT ASSESSMENT.
--- NOTE | 2017-10-05 10:00 | NUR ---
RESTING IN BED. TOLERATED ROUTINE MED WITH NO PROBLEM. CALL LIGHT IN REACH.
[2017-10-05] MEDS ORDERED: IRON325 M1 PO (11:48)
[2017-10-05] MEDS ORDERED: PROCRIT20000 UNIT IJ (11:48)
[2017-10-05 12:00] VITALS: BP 156/70
--- NOTE | 2017-10-05 12:00 | NUR ---
RESTING IN BED. RESP-EASY AND REGULAR. FAMILY AT HIS SIDE. CALL LIGHT IN REACH.
--- NOTE | 2017-10-05 12:20 | NUR ---
CALLED DR. WAYNE OFFICE REGARDING DISCHARGE ORDERS. THEY WILL HAVE HIM CALL BACK.
--- NOTE | 2017-10-05 12:25 | NUR ---
DR. WAYNE CALLED. CONTINUE CBC IRON PANEL MONTHLY AND CONTINUE EPOGEN AND HOLD IF HGB>11 AND CALL.
--- NOTE | 2017-10-05 13:16 | NUR ---
Patient is being discharged back to [facility], family is transporting around 2 PM. Updates faxed to [facility] and [place]a notified.
--- NOTE | 2017-10-05 14:30 | NUR ---
Discharge instructions reviewed with patient/family. Patient receptive and verbalizes understanding. Follow-up care arranged. Written instructions given to patient/family. HEPLOCK REMOVED. 2X2 APPLIED. MONITOR REMOVED. LORENZO COTTO
--- NOTE | 2017-10-05 14:41 | NUR ---
PHYSICAL THERAPY PAtient pending d/c at 2 pm this date. Thank you for this referal. Nuris lin,PT
== END 2017-10-05 14:30 | disposition other institution (70) | DRG 811 ==
LOC: ED 20:58 → 4E 23:38 → EDHOLD 23:38 → 4E 23:45
PROVIDERS: Hospitalist; Internal Medicine Nephrology; ADMIT Student in an Organized Health Care Education/Training Program
PROC: 30233N1 Transfusion of Nonautologous Red Blood Cells into Peripheral Vein, Percutaneous Approach (ICD-10-PCS; principal; 2017-10-04)
DX: D64.9 Anemia, unspecified (principal); G93.41 Metabolic encephalopathy; E43 Unspecified severe protein-calorie malnutrition; I12.0 Hypertensive chronic kidney disease with stage 5 chronic kidney disease or end stage renal disease; N18.5 Chronic kidney disease, stage 5; N25.81 Secondary hyperparathyroidism of renal origin; E87.2 Acidosis; E87.5 Hyperkalemia; E87.8 Other disorders of electrolyte and fluid balance, not elsewhere classified; F03.90 Unspecified dementia, unspecified severity, without behavioral disturbance, psychotic disturbance, mood disturbance, and anxiety; E03.9 Hypothyroidism, unspecified; E78.5 Hyperlipidemia, unspecified; I25.10 Atherosclerotic heart disease of native coronary artery without angina pectoris; R73.9 Hyperglycemia, unspecified; D47.3 Essential (hemorrhagic) thrombocythemia; E55.9 Vitamin D deficiency, unspecified; Z95.1 Presence of aortocoronary bypass graft; Z68.25 Body mass index [BMI] 25.0-25.9, adult; Z79.899 Other long term (current) drug therapy; Z79.82 Long term (current) use of aspirin; Z85.46 Personal history of malignant neoplasm of prostate; Z95.2 Presence of prosthetic heart valve; Z87.891 Personal history of nicotine dependence; Z82.49 Family history of ischemic heart disease and other diseases of the circulatory system

== ENCOUNTER 2017-11-10 11:43 | Inpatient (IN) | payer MEDICARE, MEDICAID ==
[~2017-11-10] VITALS: Ht 182.8 cm; Wt 80.9 kg
--- NOTE | ~2017-11-10 | PR ---
[place], [place] PROGRESS NOTE NAME: GARY JIMENEZ [facility] #: [id number] UNIT #: [id number] ROOM: 419 DOCTOR: NATALIA CRAWFORD MD BIRTHDATE: [birth year] DOS: 11/13/2017 SUBJECTIVE: The patient was seen and examined. He is awake and alert. Denies shortness of breath, fevers, chills or night sweats. He was on room air, sitting in bed. He states to me he is being discharged to rehab facility. PHYSICAL EXAMINATION: VITAL SIGNS: Showed temperature of 98.1, pulse 76, respiratory rate 20, blood pressure 145/64. HEENT: Shows no JVD. LUNGS: Clear, no wheezing. HEART: Normal S1, S2. No rub, thrill or gallop. ABDOMEN: Soft, nontender. There is no organomegaly. EXTREMITIES: Showed no edema. SKIN: Showed no rash. LABORATORY DATA: Hemoglobin 8.6, white count of 8.4, platelets of 172, BUN 44, creatinine 3.7, sodium 143, potassium 4.2, CO2 of 18, calcium 8.0, magnesium 1.7, albumin of 2.5. ASSESSMENT AND PLAN: 1. 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 Renal function appears to be stable, continue to follow labs on the hospital. Dose medication for current creatinine clearance. 2. Metabolic acidosis. The patient is on sodium bicarbonate tablets. 3. Anemia of chronic disease. Continue erythropoietin stimulating agents. 4. Hypertension. Continue medications. 5. Secondary hyperparathyroidism. The patient is on activated vitamin D. NATALIA CRAWFORD MD CM:PNTRANS [id number] NATALIA CRAWFORD MD [id number] interface
[~2017-11-10 11:43] MED LIST changes: +ASPIR 8181 MG PO; -ASPIRIN81 M1 PO; +IRON325 M1 PO; +METOPROLOL TART50 M1 PO; +PAIN RELIEVER650 MG PO; +PERCOCET 7.5-31 EACH PO; +PROCRIT20000 UNIT IJ; +VITAMIN D31000 UNI1 PO
[2017-11-10 11:54] VITALS: BP 168/68
[2017-11-10 12:13] LABS: BASO % 0.1 % (0.0-1.0); EOS % 0.3 % (1.0-4.0); HEMATOCRIT 33.3 % (42.0-52.0); HEMOGLOBIN 10.8 g/dl (14.0-18.0); LYMPH # 1.2 10*3/uL (1.3-4.4); LYMPH % 15.8 % (27.0-41.0); MEAN CELL VOLUME 92.2 fl (80.0-94.0); MEAN CORPUSCULAR HGB 29.9 pg (27.0-31.0); MEAN CORPUSCULAR HGB CONC 32.4 g/dl (33.0-37.0); MEAN PLATELET VOLUME 10.2 fl (9.6-12.3); MONO # 0.4 10*3/uL (0.1-1.0); MONO % 4.8 % (3.0-9.0); NEUT # 6.1 10*3/uL (2.3-7.9); NEUT % 78.5 % (47.0-73.0); PLATELET COUNT AUTOMATED 241 10*3/uL (130-400); RED BLOOD COUNT 3.61 10*6/uL (4.50-5.90); RED CELL DISTRI WIDTH 15.9 % (0-14.5); WHITE BLOOD COUNT 7.7 10*3/uL (4.8-10.8)
[2017-11-10 12:31] LABS: ALBUMIN 3.3 gm/dl (3.1-4.5); CREATININE 3.89 mg/dL (0.70-1.30); POTASSIUM 4.9 mmol/L (3.5-5.1); TOTAL PROTEIN 7.2 gm/dL (6.4-8.2)
[2017-11-10 13:42] VITALS: BP 160/70
[2017-11-10 13:48] VITALS: BP 154/59
[2017-11-10 14:00] VITALS: BP 156/54
[2017-11-10 16:00] VITALS: BP 141/57
[2017-11-10] MEDS ORDERED: SALINE NOSE SPR45 ML NAS (16:47)
[2017-11-10] MEDS ORDERED: EPOGEN20000 UNIT SC (16:54)
[2017-11-10] MEDS ORDERED: MEGACE 40400 MG/10 PO (16:55)
[2017-11-10] MEDS ORDERED: MELATONIN3 MG PO (16:57)
[2017-11-10] MEDS ORDERED: FERROUS SULFAT325 MG PO (16:59)
[2017-11-10 20:00] VITALS: BP 139/50
[2017-11-11] VITALS: BP 138/46
[2017-11-11 04:00] VITALS: BP 142/52
[2017-11-11 07:00] LABS: HEMOGLOBIN 9.1 g/dl (14.0-18.0); MEAN CELL VOLUME 92.7 fl (80.0-94.0); MEAN CORPUSCULAR HGB 30.1 pg (27.0-31.0); MEAN CORPUSCULAR HGB CONC 32.5 g/dl (33.0-37.0); MEAN PLATELET VOLUME 10.6 fl (9.6-12.3); PLATELET COUNT AUTOMATED 186 10*3/uL (130-400); RED BLOOD COUNT 3.02 10*6/uL (4.50-5.90)
[2017-11-11 07:15] LABS: ALBUMIN 2.4 gm/dl (3.1-4.5); CREATININE 3.98 mg/dL (0.70-1.30); FREE T4 1.59 ng/dl (0.76-1.46); POTASSIUM 4.9 mmol/L (3.5-5.1); TOTAL PROTEIN 6.1 gm/dL (6.4-8.2)
[2017-11-11 07:17] LABS: ACT PARTIAL THROMBO TIME 33.7 SECONDS (20.8-31.5); INTERNATIONAL NORM RATIO 1.2 (2.0-3.5)
[2017-11-11 07:29] LABS: THYROID STIM HORMONE (HS) 4.54 uIU/ml (0.358-4.75)
[2017-11-11 07:32] LABS: BURR CELLS MANY; PLATELET SUFFICIENCY NORMAL (NORMAL); POLYCHROMASIA SLIGHT; TOTAL CELLS COUNTED 100 #CELLS
[2017-11-11 08:00] VITALS: BP 129/37
[2017-11-11 12:00] VITALS: BP 130/50
[2017-11-11 16:00] VITALS: BP 130/51
[2017-11-11 20:00] VITALS: BP 137/52
[2017-11-12] VITALS (7 sets, daily range): BP systolic 120–161; BP diastolic 47–71
[2017-11-12 06:21] LABS: BASO % 0.1 % (0.0-1.0); EOS % 0.1 % (1.0-4.0); HEMATOCRIT 27.7 % (42.0-52.0); LYMPH # 2.5 10*3/uL (1.3-4.4); LYMPH % 18.9 % (27.0-41.0); MEAN CELL VOLUME 91.7 fl (80.0-94.0); MEAN CORPUSCULAR HGB 29.8 pg (27.0-31.0); MEAN CORPUSCULAR HGB CONC 32.5 g/dl (33.0-37.0); MEAN PLATELET VOLUME 10.7 fl (9.6-12.3); MONO # 0.8 10*3/uL (0.1-1.0); MONO % 5.9 % (3.0-9.0); NEUT % 74.2 % (47.0-73.0); PLATELET COUNT AUTOMATED 171 10*3/uL (130-400); RED BLOOD COUNT 3.02 10*6/uL (4.50-5.90); WHITE BLOOD COUNT 13.4 10*3/uL (4.8-10.8)
[2017-11-12 06:39] LABS: ALBUMIN 2.6 gm/dl (3.1-4.5); CREATININE 3.87 mg/dL (0.70-1.30); PHOSPHOROUS 4.1 mg/dL (2.5-4.9)
[2017-11-13] VITALS: BP 112/33
[2017-11-13 07:15] LABS: BASO % 0.1 % (0.0-1.0); EOS % 0.4 % (1.0-4.0); HEMATOCRIT 26.8 % (42.0-52.0); HEMOGLOBIN 8.6 g/dl (14.0-18.0); LYMPH # 2.5 10*3/uL (1.3-4.4); MEAN CELL VOLUME 91.8 fl (80.0-94.0); MEAN CORPUSCULAR HGB 29.5 pg (27.0-31.0); MEAN CORPUSCULAR HGB CONC 32.1 g/dl (33.0-37.0); MEAN PLATELET VOLUME 10.8 fl (9.6-12.3); MONO # 0.7 10*3/uL (0.1-1.0); MONO % 7.8 % (3.0-9.0); NEUT # 5.3 10*3/uL (2.3-7.9); NEUT % 62.5 % (47.0-73.0); PLATELET COUNT AUTOMATED 172 10*3/uL (130-400); RED BLOOD COUNT 2.92 10*6/uL (4.50-5.90); RED CELL DISTRI WIDTH 16.1 % (0-14.5); WHITE BLOOD COUNT 8.4 10*3/uL (4.8-10.8)
[2017-11-13 07:45] LABS: ALBUMIN 2.5 gm/dl (3.1-4.5); CREATININE 3.73 mg/dL (0.70-1.30); POTASSIUM 4.2 mmol/L (3.5-5.1); TOTAL PROTEIN 5.9 gm/dL (6.4-8.2)
[2017-11-13 08:00] VITALS: BP 140/46
[2017-11-13 12:00] VITALS: BP 145/64
[2017-11-13] MEDS ORDERED: CLINDAMYCIN150 MG PO (13:49)
[2017-11-13] MEDS ORDERED: LEVOFLOXACIN500 MG PO (13:49)
[2017-11-13] MEDS ORDERED: SODIUM BICARBO650 MG PO (13:49)
[2017-11-13] MEDS ORDERED: Synthroid,Levo50 MCG PO (13:49)
== END 2017-11-13 17:25 | disposition other institution (70) | DRG 871 ==
LOC: ED 11:43 → EDHOLD 13:16 → 4E 13:16
PROVIDERS: Emergency Medicine; Internal Medicine; Internal Medicine Hospice and Palliative Medicine; Internal Medicine Nephrology
DX: A41.9 Sepsis, unspecified organism (principal); J96.01 Acute respiratory failure with hypoxia; E43 Unspecified severe protein-calorie malnutrition; E87.2 Acidosis; I12.0 Hypertensive chronic kidney disease with stage 5 chronic kidney disease or end stage renal disease; J18.1 Lobar pneumonia, unspecified organism; I25.810 Atherosclerosis of coronary artery bypass graft(s) without angina pectoris; E87.8 Other disorders of electrolyte and fluid balance, not elsewhere classified; N18.6 End stage renal disease; N25.81 Secondary hyperparathyroidism of renal origin; D63.8 Anemia in other chronic diseases classified elsewhere; Z66 Do not resuscitate; Z51.5 Encounter for palliative care; C61 Malignant neoplasm of prostate; G54.2 Cervical root disorders, not elsewhere classified; D50.9 Iron deficiency anemia, unspecified; D72.810 Lymphocytopenia; F03.90 Unspecified dementia, unspecified severity, without behavioral disturbance, psychotic disturbance, mood disturbance, and anxiety; E78.5 Hyperlipidemia, unspecified; R29.6 Repeated falls; Z79.82 Long term (current) use of aspirin; Z68.24 Body mass index [BMI] 24.0-24.9, adult; Z79.899 Other long term (current) drug therapy; Z95.1 Presence of aortocoronary bypass graft; Z95.2 Presence of prosthetic heart valve; Z87.891 Personal history of nicotine dependence; Z82.49 Family history of ischemic heart disease and other diseases of the circulatory system